=== PATIENT | male | born 1985 | race Caucasian/White ===

== ENCOUNTER 2019-05-26 09:13 | Emergency (ER) | payer BC ==
[2019-05-26] MEDS ORDERED: Clindamycin Phosphate 900 MG in Sodium Chloride 0.9% 100 ML IV ONE (09:50)
[2019-05-26] MEDS ORDERED: Sodium Chloride 0.9% 10 ML Syringe FLUSH PRN (09:50)
[2019-05-26] MEDS ORDERED: Sodium Chloride 0.9% 0 ML ONE (10:07)
--- NOTE | 2019-05-26 10:12 | EDM.PDOC ---
ED HPI GENERAL MEDICAL PROBLEM - General Chief Complaint: ENT Problem Stated Complaint: DENTAIL COMPLAINT,ABSCESSED TOOTH Time Seen by Provider: 05/26/19 09:34 Source of Information: Reports: Patient History Limitations: Reports: No Limitations - History of Present Illness INITIAL COMMENTS - FREE TEXT/NARRATIVE: The patient presents with a dental infection. This started on Monday when he broke a tooth. He started having swelling on Monday and pain and then on Monday he saw his dentist Dr Adhikari and he gave him penicillin QID and a shot at the clinic for Monday and Monday. There is more swelling now. He has no fever or chills. He has no chest pain, shortness of breath, abdominal pain, nausea or vomiting. He has moderate edema to the left side of his face. He has been only taking the penicillin 1 time per day. He needs to be taking it 4 times per day. Onset: Gradual Duration: Week(s): (1) Location: Reports: Face (Pain and swelling) Quality: Reports: Pressure Severity: Mild Improves with: Reports: None Worsens with: Reports: None Associated Symptoms: Reports: Fever/Chills. Denies: Chest Pain, Cough, Headaches, Nausea/Vomiting, Shortness of Breath Left Face/Facial Pain Score (Numeric/FACES): 4 - Related Data Allergies Allergy/AdvReac Type Severity Reaction Status Date / Time No Known Allergies Allergy Verified 05/26/19 09:44 Home Meds: Home Meds Hydrocodone/Acetaminophen [Hydrocodon-Acetaminophen 5-325] 1 - 2 each PO Q6HR PRN #15 tablet 05/26/19 [Rx] Past Medical History Cardiovascular History: Reports: None Respiratory History: Reports: None Gastrointestinal History: Reports: None Genitourinary History: Reports: None Musculoskeletal History: Reports: Fracture Other Musculoskeletal History: broke collar bones, left wrist, boker fracture on R hand, pinky on ring finger, cut off both tips on middle finger, slipped C4 , C3 (PARALIZED FOR 6 HRS) Neurological History: Reports: Concussion Psychiatric History: Reports: None Endocrine/Metabolic History: Reports: None Hematologic History: Reports: None Immunologic History: Reports: None Oncologic (Cancer) History: Reports: None Dermatologic History: Reports: None - Past Surgical History Other HEENT Surgeries/Procedures: fillings, wisdom teeth pulled Social & Family History - Tobacco Use Smoking Status *Q: Current Every Day Smoker Years of Tobacco use: 5 Packs/Tins Daily: 0.2 - Caffeine Use Caffeine Use: Reports: Coffee - Alcohol Use Days Per Week of Alcohol Use: 7 Number of Drinks Per Day: 2 Total Drinks Per Week: 14 Date of Last Drink: 05/17/19 - Recreational Drug Use Recreational Drug Use: No ED ROS ENT - Review of Systems Review Of Systems: See Below Constitutional: Reports: No Symptoms HEENT: Reports: Other (Left facial swelling and pain) Respiratory: Reports: No Symptoms Cardiovascular: Reports: No Symptoms Endocrine: Reports: No Symptoms GI/Abdominal: Reports: No Symptoms : Reports: No Symptoms Musculoskeletal: Reports: No Symptoms Skin: Reports: Other (Left sided facial swelling and erythema) ED EXAM, ENT - Physical Exam Exam: See Below Exam Limited By: No Limitations General Appearance: Alert, No Apparent Distress Ears: Normal External Exam Nose: Normal Inspection Mouth/Throat: Other (Swelling and pain to the left lower jaw) Head: Atraumatic, Other (Left facial edema and erythema of the face) Neck: Lymphadenopathy (L) Respiratory/Chest: No Respiratory Distress, Lungs Clear, Normal Breath Sounds Cardiovascular: Regular Rate, Rhythm, No Edema, No Murmur GI/Abdominal: Soft, Non-Tender, No Organomegaly, No Mass Back: Normal Inspection Extremities: Normal Inspection Course - Vital Signs Last Recorded V/S: Last Vital Signs Temp 99 F 05/26/19 09:41 Pulse 85 05/26/19 09:41 Resp 18 05/26/19 09:41 BP 124/92 H 05/26/19 09:41 Pulse Ox 98 05/26/19 09:41 - Orders/Labs/Meds Orders: Active Orders 24 hr Category Date Time Status Peripheral IV Care [RC] . DIRECTED Care 05/26/19 09:50 Active Sodium Chloride 0.9% [Saline Flush] Med 05/26/19 09:50 Active 10 ml FLUSH ASDIRECTED PRN Peripheral IV Insertion Adult [OM.PC] Routine Oth 05/26/19 09:50 Ordered Medication Orders Sodium Chloride (Saline Flush) 10 ml FLUSH ASDIRECTED PRN PRN Reason: Keep Vein Open Meds: Medications Generic Name Dose Route Start Last Admin Trade Name Freq PRN Reason Stop Dose Admin Sodium Chloride 10 ml 05/26/19 09:50 Saline Flush FLUSH ASDIRECTED PRN Keep Vein Open Discontinued Medications Generic Name Dose Route Start Last Admin Trade Name Kristi PRN Reason Stop Dose Admin Clindamycin Phosphate 900 mg/ 106 mls @ 200 mls/hr 05/26/19 09:50 Sodium Chloride IV 05/26/19 10:21 ONETIME ONE Clindamycin Phosphate 900 mg/ 50 mls @ 100 mls/hr 05/26/19 10:15 05/26/19 10: 17 Premix IV 05/26/19 10:44 100 mls/hr ONETIME ONE Administration Sodium Chloride Confirm 05/26/19 10:07 05/26/19 11:40 Normal Saline Administered 05/26/19 10:08 Not Given Dose 100 mls @ as directed [facility] - Re-Assessments/Exams Free Text/Narrative Re-Assessment/Exam: 05/26/19 10:11 I ordered an IV NS saline lock and clindamycin 900mg IV. 05/26/19 11:40 I will have him take the penicillin 4 times per day and I will give him something for pain. Departure - Departure Time of Disposition: 11:45 Disposition: Home, Self-Care 01 Condition: Good Clinical Impression: Dental abscess - Discharge Information *PRESCRIPTION DRUG MONITORING PROGRAM REVIEWED*: No *COPY OF PRESCRIPTION DRUG MONITORING REPORT IN PATIENT JACKELINE: No Prescriptions: Hydrocodone/Acetaminophen [Hydrocodon-Acetaminophen 5-325] 1 - 2 each PO Q6HR PRN #15 tablet PRN Reason: Pain Referrals: PCP,None [Primary Care Provider] - Forms: ED Department Discharge Additional Instructions: Take the penicillin 4 times per day. Put warm compresses on the affected area 3 to 5 times per day. Take motrin or tylenol for pain. If that does not help try the hydrocodone. - My Orders Last 24 Hours: My Active Orders 05/26/19 09:50 Peripheral IV Care [RC] . DIRECTED Sodium Chloride 0.9% [Saline Flush] 10 ml FLUSH ASDIRECTED PRN Peripheral IV Insertion Adult [OM.PC] Routine - Assessment/Plan Last 24 Hours: My Active Orders 05/26/19 09:50 Peripheral IV Care [RC] . DIRECTED Sodium Chloride 0.9% [Saline Flush] 10 ml FLUSH ASDIRECTED PRN Peripheral IV Insertion Adult [OM.PC] Routine
[2019-05-26] MEDS ORDERED: Clindamycin Phosphate in D5W 900 MG in Premix Bag 1 BAG IV ONE ×2 (10:15)
== END 2019-05-26 12:01 | disposition home or self-care (01) ==
LOC: JD.ED 09:13
DX: K04.7 Periapical abscess without sinus (principal); F17.210 Nicotine dependence, cigarettes, uncomplicated
CPT/HCPCS: 96365; 99283; J3490